=== PATIENT | female | born 1975 | race Caucasian/White ===

== ENCOUNTER 2016-10-20 07:35 | Day surgery (SDC) | payer OTHER ==
[~2016-10-20] VITALS: Ht 170.2 cm; Wt 145.2 kg
[~2016-10-20 07:35] MED LIST: ALDOMET500 MG PO; ALEVE220 MG PO; AMLODIPINE BES2.5 MG PO; ASPIR-LOW81 MG PO; ASPIRIN E.C.81 M1 PO; ASPIRIN81 M1 PO; B COMPLEX #11 EACH PO; BENICAR20 MG PO; CELEBREX200 MG PO; CEPHALEXIN500 MG PO; CITALOPRAM HBR40 MG PO; Cipro PO; DICLOFENAC SODI50 MG PO; DIFLUCAN150 MG PO; DILTIAZEM 24HR180 M3 PO; Feosol PO; GLUCOPHAGE500 MG PO; HYDROCHLOROTH12.5 M1 PO; HYDROCHLOROTHIA25 MG PO; JANUMET 50/11 TABLET PO; KEFLEX500 MG PO; KLONOPIN0.5 M1 PO; LIDODERM700 MG TP; LISINOPRIL-HCT1 EACH PO; LISINOPRIL20 MG PO; LISINOPRIL40 MG PO; LO-DOSE ASPIRIN81 M2 PO; LOPRESSOR100 M1 PO; LOPRESSOR50 MG PO; LYRICA75 MG PO; MAG-OXIDE400 MG PO; MERIBIN5 MG PO; METOPROLOL SUC100 MG PO; METOPROLOL TAR100 MG PO; Mag-Ox PO; Motrin PO; NEURONTIN300 MG PO; NEURONTIN600 MG PO; NORVASC5 MG PO; OMEPRAZOLE40 M1 PO; PERCOCET 5/31 TABLET PO; PRAVACHOL20 MG PO; PREDNISONE10 MG PO; PRILOSEC2.5 MG PO; PRILOSEC20 MG PO; PRILOSEC40 MG PO; PROTONIX40 MG PO; REGLAN5 MG PO; RELAFEN500 M1 PO; ROBITUSSIN AC,T10 ML PO; STRATTERA40 MG PO; SULFAMETHOXAZOLE/TMP PO; TOPROL XL100 MG PO; TRAMADOL HCL50 MG PO; VITAMIN D; VITAMIN D2000 UNIT PO; VITAMIN D3 1,01 EACH PO; VOLTAREN50 MG PO; Vitamin D, Drisdol PO; ZANAFLEX4 M1 PO; ZANTAC150 MG PO; ZESTORETIC 20-1 EAC2 PO; ZESTRIL,PRINIVI20 MG PO; ZOFRAN4 MG PO; ZOLOFT100 MG PO; ZOLOFT25 MG PO; ZOLOFT50 M1 PO; Zestril,Prinivil PO; Zoloft PO
[2016-10-20 08:22] LABS: CHLORIDE 101 mEq/L (99-109); POTASSIUM 4.2 mEq/L (3.7-5.4); SODIUM 140 mEq/L (136-147)
[2016-10-20 08:24] LABS: GLUCOSE 130 mg/dL (70-99)
[2016-10-20 08:26] LABS: ANION GAP 13 MEQ/L (2-14)
[2016-10-20 08:26] LABS: POINT-OF-CARE METER ID UU14174212
[2016-10-20 08:28] LABS: GFR ESTIMATE (CALCULATED) > 59 mL/min/
[2016-10-20 08:29] LABS: UREA NITROGEN (BUN) 14 mg/dL (9-23)
[2016-10-20] MEDS ORDERED: PERCOCET 5/31 TABLET PO (10:17)
[2016-10-20 10:39] LABS: POINT-OF-CARE METER ID UU13113675
[2016-10-20 11:30] VITALS: BP 104/56
[2016-10-20 12:24] VITALS: BP 120/70
== END 2016-10-20 12:26 | disposition home or self-care (01) ==
LOC: SDC 07:35
PROVIDERS: Obstetrics & Gynecology
PROC: 0U598ZZ Destruction of Uterus, Via Natural or Artificial Opening Endoscopic (ICD-10-PCS; principal; 2016-10-20)
DX: N92.0 Excessive and frequent menstruation with regular cycle (principal); N84.0 Polyp of corpus uteri; E78.5 Hyperlipidemia, unspecified; I10 Essential (primary) hypertension; E66.9 Obesity, unspecified; E11.9 Type 2 diabetes mellitus without complications; K21.9 Gastro-esophageal reflux disease without esophagitis; Z98.51 Tubal ligation status; Z68.43 Body mass index [BMI] 50.0-59.9, adult; Z79.82 Long term (current) use of aspirin; Z91.040 Latex allergy status
CPT/HCPCS: 80048; 82948; J0330; J0690; J1100; J1885; J2405; J3010

== ENCOUNTER 2016-11-24 17:35 | Emergency (ER) | payer OTHER ==
[~2016-11-24] VITALS: Ht 170.2 cm; Wt 144.6 kg
[2016-11-24 18:35] LABS: HEMATOCRIT 41.6 % (36.0-46.0); MCHC 31.3 G/DL (30.0-36.0); MCV 86.3 FL (83-99); MEAN PLAT.VOLUME 8.9 uM^3 (9.5-12.4); PLATELET COUNT 411 K/uL (156-360); RBC DIS.WIDTH-CV 15.8 % (11.8-14.6); RBC DIS.WIDTH-SD 49.6 % (39-53); RED BLOOD COUNT 4.82 M/uL (3.80-5.20); WHITE BLOOD COUNT 15.9 K/uL (4.1-10.2)
[2016-11-24 18:47] LABS: CHLORIDE 101 mEq/L (99-109); SODIUM 140 mEq/L (136-147)
[2016-11-24 18:49] LABS: GLUCOSE 122 mg/dL (70-99)
[2016-11-24 18:50] LABS: ANION GAP 11 MEQ/L (2-14)
[2016-11-24 18:51] LABS: TOTAL BILIRUBIN 0.4 mg/dL (0.0-1.0)
[2016-11-24 18:53] LABS: ALKALINE PHOSPHATASE 65 IU/L (3-129); GFR ESTIMATE (CALCULATED) > 59 mL/min/
[2016-11-24 18:54] LABS: UREA NITROGEN (BUN) 12 mg/dL (9-23)
[2016-11-24 18:56] LABS: LIPASE 17 U/L (1.0-51.0)
[2016-11-24 19:04] LABS: QUANTITATIVE HCG < 4.0 MIU/ML
[2016-11-24 20:31] LABS: ADD MIUA? YES; BILIRUBIN NEGATIVE; BLOOD NEGATIVE; COLOR YELLOW ((YELLOW)); GLUCOSE (STRIP) NEGATIVE; KETONES NEGATIVE; LEUKOCYTES TRACE; NITRITE NEGATIVE; PROTEIN (STRIP) 30; SPECIFIC GRAVITY 1.021 (1.000-1.030); UROBILINOGEN 0.2 MG/DL (0.2-1.0)
[2016-11-24 20:53] LABS: BACTERIA RARE /HPF; EPITHELIAL CELLS 2+ /HPF; HYALINE CASTS 0-5 /LPF; MUCUS TRACE /LPF; RED BLOOD CELLS 0-5 /HPF (0-5); WHITE BLOOD CELLS 0-5 /HPF (0-5)
[2016-11-24] MEDS ORDERED: FLEXERIL10 MG PO (21:00)
[2016-11-24] MEDS ORDERED: ULTRAM50 MG PO (21:00)
[2016-11-24 21:09] VITALS: BP 140/93
== END 2016-11-24 21:10 | disposition home or self-care (01) ==
LOC: EME 17:35
PROVIDERS: Physician Assistant
DX: M54.5 Low back pain (principal); R10.32 Left lower quadrant pain; Z87.442 Personal history of urinary calculi; Z91.040 Latex allergy status; Z87.891 Personal history of nicotine dependence
CPT/HCPCS: 74176; 80053; 81003; 83690; 84702; 85027; 99281; 99284; J3010

== ENCOUNTER 2017-03-10 04:14 | Emergency (ER) | payer OTHER ==
[~2017-03-10] VITALS: Ht 170.2 cm; Wt 136.6 kg
[~2017-03-10 04:14] MED LIST changes: +FLEXERIL10 MG PO; +ULTRAM50 MG PO
[2017-03-10] MEDS ORDERED: PERCOCET 5/31 TABLET PO (06:16)
[2017-03-10] MEDS ORDERED: MOTRIN800 MG PO (06:16)
[2017-03-10 06:57] VITALS: BP 133/79
== END 2017-03-10 06:57 | disposition home or self-care (01) ==
LOC: EME 04:14
DX: S93.402A Sprain of unspecified ligament of left ankle, initial encounter (principal); W10.9XXA Fall (on) (from) unspecified stairs and steps, initial encounter; E11.9 Type 2 diabetes mellitus without complications; I10 Essential (primary) hypertension; F17.200 Nicotine dependence, unspecified, uncomplicated
CPT/HCPCS: 73630; 99281; 99284

== ENCOUNTER 2017-07-07 16:23 | Emergency (ER) | payer OTHER ==
[~2017-07-07] VITALS: Ht 170.2 cm; Wt 131.7 kg
[~2017-07-07 16:23] MED LIST changes: +MOTRIN800 MG PO
[2017-07-07 17:28] LABS: HEMATOCRIT 40.8 % (36.0-46.0); HEMOGLOBIN 12.8 G/DL (11.9-15.5); MCH 26.2 PG (29.0-34.0); MCHC 31.4 G/DL (30.0-36.0); MCV 83.4 FL (83-99); PLATELET COUNT 494 K/uL (156-360); RBC DIS.WIDTH-SD 49.1 % (39-53); RED BLOOD COUNT 4.89 M/uL (3.80-5.20); WHITE BLOOD COUNT 15.9 K/uL (4.1-10.2)
[2017-07-07 17:37] LABS: APPEARANCE CLOUDY ((CLEAR)); BILIRUBIN NEGATIVE; BLOOD MODERATE; COLOR AMBER ((YELLOW)); GLUCOSE (STRIP) NEGATIVE; KETONES 5; LEUKOCYTES SMALL; NITRITE NEGATIVE; PROTEIN (STRIP) 100; SPECIFIC GRAVITY 1.026 (1.000-1.030)
[2017-07-07 17:42] LABS: CHLORIDE 104 mEq/L (99-109); POTASSIUM 3.6 mEq/L (3.7-5.4); SODIUM 140 mEq/L (136-147)
[2017-07-07 17:44] LABS: GLUCOSE 110 mg/dL (70-99)
[2017-07-07 17:48] LABS: CREATININE 0.8 mg/dL (0.6-1.3); GFR ESTIMATE (CALCULATED) > 59 mL/min/
[2017-07-07 17:49] LABS: UREA NITROGEN (BUN) 9 mg/dL (9-23)
[2017-07-07 17:54] LABS: BACTERIA 2+ /HPF; CALCIUM OXALATE CRYSTALS 3+ /HPF; EPITHELIAL CELLS 2+ /HPF; MUCUS 1+ /LPF; RED BLOOD CELLS 15-20 /HPF (0-5); UCUL ADDED? YES
[2017-07-07] MEDS ORDERED: PERCOCET 5/31 TABLET PO (20:44)
[2017-07-07] MEDS ORDERED: ZOFRAN4 MG PO (20:44)
[2017-07-07] MEDS ORDERED: KEFLEX500 MG PO (20:44)
[2017-07-07 20:59] VITALS: BP 130/84
== END 2017-07-07 21:23 | disposition home or self-care (01) ==
LOC: EME 16:23
DX: N13.2 Hydronephrosis with renal and ureteral calculous obstruction (principal); N39.0 Urinary tract infection, site not specified; E11.9 Type 2 diabetes mellitus without complications; I10 Essential (primary) hypertension; K31.84 Gastroparesis; F41.9 Anxiety disorder, unspecified; K21.9 Gastro-esophageal reflux disease without esophagitis; F17.200 Nicotine dependence, unspecified, uncomplicated; Z79.4 Long term (current) use of insulin; Z79.82 Long term (current) use of aspirin; Z87.442 Personal history of urinary calculi; Z90.49 Acquired absence of other specified parts of digestive tract; Z91.040 Latex allergy status; Z88.8 Allergy status to other drugs, medicaments and biological substances
CPT/HCPCS: 74176; 80048; 81003; 85027; 87086; 99281; 99284; J1885; J2405; J3010; J7030

== ENCOUNTER 2017-07-13 17:39 | Emergency (ER) | payer OTHER ==
[~2017-07-13] VITALS: Ht 170.2 cm; Wt 134.6 kg
[~2017-07-13 17:39] MED LIST changes: +ABILIFY10 MG PO; +DILAUDID2 MG PO; +FLOMAX0.4 MG PO; +LEVAQUIN500 MG PO
[2017-07-13 19:38] LABS: HEMATOCRIT 36.2 % (36.0-46.0); HEMOGLOBIN 11.4 G/DL (11.9-15.5); MCH 26.6 PG (29.0-34.0); MCHC 31.5 G/DL (30.0-36.0); MCV 84.6 FL (83-99); PLATELET COUNT 407 K/uL (156-360); RBC DIS.WIDTH-CV 16.1 % (11.8-14.6); RBC DIS.WIDTH-SD 49.7 % (39-53); RED BLOOD COUNT 4.28 M/uL (3.80-5.20); WHITE BLOOD COUNT 13.8 K/uL (4.1-10.2)
[2017-07-13 19:51] LABS: CHLORIDE 103 mEq/L (99-109); POTASSIUM 3.7 mEq/L (3.7-5.4); SODIUM 141 mEq/L (136-147)
[2017-07-13 19:53] LABS: GLUCOSE 116 mg/dL (70-99)
[2017-07-13 19:57] LABS: CREATININE 0.8 mg/dL (0.6-1.3); GFR ESTIMATE (CALCULATED) > 59 mL/min/; UREA NITROGEN (BUN) 6 mg/dL (9-23)
[2017-07-13 19:59] LABS: APPEARANCE CLOUDY ((CLEAR)); BILIRUBIN NEGATIVE; BLOOD NEGATIVE; COLOR YELLOW ((YELLOW)); GLUCOSE (STRIP) NEGATIVE; KETONES NEGATIVE; LEUKOCYTES LARGE; NITRITE NEGATIVE; PROTEIN (STRIP) NEGATIVE; SPECIFIC GRAVITY 1.006 (1.000-1.030); UROBILINOGEN 0.2 MG/DL (0.2-1.0)
[2017-07-13 20:16] LABS: BACTERIA RARE /HPF; EPITHELIAL CELLS 2+ /HPF; HYALINE CASTS 0-5 /LPF; MUCUS 2+ /LPF; UCUL ADDED? YES; WHITE BLOOD CELLS 15-20 /HPF (0-5)
[2017-07-13 20:22] LABS: ALBUMIN 3.7 g/dL (3.2-4.8)
[2017-07-13 20:27] LABS: TOTAL BILIRUBIN 0.3 mg/dL (0.0-1.0)
[2017-07-13 20:28] LABS: ALKALINE PHOSPHATASE 60 IU/L (3-129)
[2017-07-13 20:31] LABS: ALT (GPT) 65 IU/L (3-49); AST (GOT) 19 IU/L (2-34); DIRECT BILIRUBIN 0.2 mg/dL (0.0-0.3)
[2017-07-13 20:32] LABS: LIPASE 6 U/L (1.0-51.0)
[2017-07-13] MEDS ORDERED: DILAUDID4 MG PO (21:24)
[2017-07-13] MEDS ORDERED: ZOFRAN ODT8 MG PO (21:24)
[2017-07-13] MEDS ORDERED: DIFLUCAN150 MG PO (21:34)
[2017-07-13 22:15] VITALS: BP 150/78
== END 2017-07-13 22:18 | disposition home or self-care (01) ==
LOC: EME 17:39 → RME 17:39
DX: N20.2 Calculus of kidney with calculus of ureter (principal); Z90.49 Acquired absence of other specified parts of digestive tract; I10 Essential (primary) hypertension; E66.01 Morbid (severe) obesity due to excess calories; Z68.42 Body mass index [BMI] 45.0-49.9, adult; F17.200 Nicotine dependence, unspecified, uncomplicated
CPT/HCPCS: 74018; 80048; 80076; 81003; 83690; 85027; 87086; 99281; 99285; J3010

== ENCOUNTER → 2017-07-16 | Outpatient (CLI) | payer OTHER ==
[~2017-07-16] VITALS: Ht 170.2 cm; Wt 131.5 kg
[~2017-07-16] MED LIST changes: +DILAUDID4 MG PO; +ZOFRAN ODT8 MG PO
== END | disposition home or self-care (01) ==
LOC: AMB 09:00
PROC: 0TF7XZZ Fragmentation in Left Ureter, External Approach (ICD-10-PCS; principal; 2017-07-16)
DX: N20.1 Calculus of ureter (principal); Z87.442 Personal history of urinary calculi; E11.9 Type 2 diabetes mellitus without complications; I10 Essential (primary) hypertension; E66.01 Morbid (severe) obesity due to excess calories; Z68.42 Body mass index [BMI] 45.0-49.9, adult; K21.9 Gastro-esophageal reflux disease without esophagitis; G47.30 Sleep apnea, unspecified; G43.909 Migraine, unspecified, not intractable, without status migrainosus; F32.9 Major depressive disorder, single episode, unspecified; Z90.49 Acquired absence of other specified parts of digestive tract; F17.200 Nicotine dependence, unspecified, uncomplicated; Z80.42 Family history of malignant neoplasm of prostate; Z84.1 Family history of disorders of kidney and ureter; Z91.040 Latex allergy status; Z91.09 Other allergy status, other than to drugs and biological substances
CPT/HCPCS: 74021; 93005; J1100; J1885; J2250; J2405; J3010; J7120